=== PATIENT | female | born 1975 | race Two or more races ===

== ENCOUNTER 2024-05-15 09:56 | Outpatient (AMB) | payer MEDICAID, SELFPAY ==
[2024-05-15 10:53] VITALS: BP 134/86; PULSE 68; RESP 19; TEMP 36.7; O2SAT 99; BMI 26.9
--- NOTE | 2024-05-15 10:53 | GSCOFFNT_ITS ---
V[facility]s - [facility] 05/15/24 10:53 Height 1.7 m Height Method Stated Weight 78.188 kg Weight Measurement Method Standing Scale BMI 26.9 BP 134/86 H Blood Pressure Source Automatic Cuff Blood Pressure Location Left Upper Arm Position Sitting Respiration 19 Pulse 68 Pulse Source Monitor Temp 98.0 F Temp Source Temporal Artery Scan Pulse Oximetry (%) 99 Oxygen Delivery Method Room Air Med/Allergies Allergies & Medications Allergies No Known Allergies Allergy (Verified 05/15/24 10:55) Medication Reconciliation No Known Home Medications 05/15/24 [History Confirmed 05/15/24] MA Intake Visit Data Collection New Patient or Established: Established Patient (seen at [facility] within 3 years) Seen by Clinical Staff ONLY (RN/MA): No Reason for Visit:: REFERRAL GALLSTONES Pain Present Currently: No Color Print Inspector Required: No PCP or OBGYN visit in last 3 months: Yes Hx Now: No Do You Feel Safe at Home: Yes Authorities Contacted: N/A Smoking Status Smoking Status: Never smoker Immunization / Flu Flu Vaccine in the Last 12 Months: No Flu Vaccine Exclusion Criteria: Already Received Past Medical History Social History SMOKING STATUS: Smoking status: Never smoker HPI HPI Narrative Spoke to pt with in-person language interpreter 48F referred for symptomatic cholelithiasis. Pt reports since Mar she has had episodes of RUQ pain, especially after eating greasy or spicy foods. She states episodes are associated with nausea and diarrhea. Pt states she went to the ER in [place] and was advised she has gallstones PMH: None PSHx: None Meds: None Allergies: NKDA Family hx: No known malignancies ROS Review of Systems Systems Reviewed: All systems reviewed, normal except as documented Objective/Exam General General Appearance: alert, cooperative and well groomed Resp Respiratory exam: Absent respiratory distress Abdominal Abdominal exam: Present soft; Absent distention or tenderness Assessment & Plan Diagnosis / Problem List (1) Symptomatic cholelithiasis: Status: Acute Assessment & Plan: 48F with symptomatic cholelithiasis. I explained benefits/risks of surgery including need for conversion to open, bleeding, infection, injury to nearby structures and biliary leak requiring further procedures or surgery which could require transfer to another facility. 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
== END 2024-05-15 11:20 | disposition home or self-care (01) ==
LOC: HODSRG 09:56
PROVIDERS: PCP Family Medicine; Referring Provider Family Medicine; Supervising Provider Surgery; Visit Provider Surgery
DX: K80.20 Calculus of gallbladder without cholecystitis without obstruction (principal)
CPT/HCPCS: 99203; G0463

== ENCOUNTER 2024-06-23 09:04 | Outpatient (AMB) | payer MEDICAID, SELFPAY ==
[2024-06-23 09:13] VITALS: BP 124/84; PULSE 82; RESP 18; TEMP 36.3; O2SAT 98; BMI 27.3
--- NOTE | 2024-06-23 09:13 | PD.GSCLVISIT ---
Vital Signs - [facility] 06/23/24 09:13 Height 1.7 m Height Method Stated Weight 78.925 kg Weight Measurement Method Standing Scale BMI 27.3 BP 124/84 Blood Pressure Source Automatic Cuff Blood Pressure Location Left Upper Arm Position Sitting Respiration 18 Pulse 82 Pulse Source Monitor Temp 97.3 F Temp Source Temporal Artery Scan Pulse Oximetry (%) 98 Oxygen Delivery Method Room Air Med/Allergies Allergies & Medications Allergies No Known Allergies Allergy (Verified 06/23/24 09:27) Medication Reconciliation No Known Home Medications 05/15/24 [History Confirmed 06/23/24] MA Intake Visit Data Collection New Patient or Established: Established Patient (seen at [facility] within 3 years) Seen by Clinical Staff ONLY (RN/MA): No Reason for Visit:: GALLSTONES F/U Pain Present Currently: No Business Excellence Leader Required: Yes PCP or OBGYN visit in last 3 months: Yes Hx Now: No Do You Feel Safe at Home: Yes Authorities Contacted: N/A Smoking Status Smoking Status: Never smoker Immunization / Flu Flu Vaccine in the Last 12 Months: No Flu Vaccine Exclusion Criteria: No Exclusion Criteria Past Medical History Social History SMOKING STATUS: Smoking status: Never smoker HPI HPI Narrative Spoke to pt with in-person knotter 48F here for follow up of symptomatic cholelithiasis. Pt states she has not had any episodes of pain since last visit, but notices she feels bloated and inflamed if she eats spicy or greasy foods ROS Review of Systems Systems Reviewed: All systems reviewed, normal except as documented Objective/Exam General General Appearance: alert, cooperative and well groomed Resp Respiratory exam: Absent respiratory distress Assessment & Plan Diagnosis / Problem List (1) Symptomatic cholelithiasis: Status: Acute Assessment & Plan: 48F referred for symptomatic cholelithiasis. I explained that surgery is not mandatory but given a history of symptomatic cholelithiasis there is a 30% chance she will experience a recurrence of symptoms. All questions were answered, we discussed benefits/risks and pt agrees to proceed Plan: Follow up outpt US results Lap ivana, possible open Wed 07/09 Office Procedures GNS Level of Care Nursing/Assessment Patient Status: Established Patient Nursing Assessment/Reassesment: Medication Reconciliation, Update PMH in EMR and Vital Signs Coordination of Care: Complex Care and Chronic Disease 1-5, Consent,records obtained, informed consent, Education Simp Pt/Fam and Staff clarify orders Established Patient Charge Established Patient Point Assignment: 85 Established Patient Point Charge: EP Level 3 (80-115) Patient Portal Questionaires Social History Tobacco History Smoking Status: Never smoker Domestic Abuse History Do You Feel Safe at Home: Yes Review of Systems Report any current symptoms Only answer those that you have currently: Past Medical History Past Medical History Have you ever been diagnosed with any of the following:
== END 2024-06-23 09:28 | disposition home or self-care (01) ==
LOC: HODSRG 09:04
PROVIDERS: PCP Family Medicine; Referring Provider Family Medicine; Supervising Provider Surgery; Visit Provider Surgery
DX: K80.20 Calculus of gallbladder without cholecystitis without obstruction (principal)
CPT/HCPCS: 99213; G0463

== ENCOUNTER 2024-07-09 05:30 | Day surgery (SDC) | payer MEDICAID, SELFPAY ==
[2024-07-08 08:10] VITALS: BMI 28.4
[2024-07-08 09:54] LABS: Basophils % (Auto) 0 % (0-2.5); Eosinophils # (Auto) 0.1 Thou/mm3 (0.0-0.5); Eosinophils % (Auto) 2 % (0-10); Hematocrit 37.3 % (36.0-46.0); Hemoglobin 12.7 g/dL (12.0-16.0); Immature Granulocytes % (Auto) 0 % (0-0); Immature Granulocytes Auto 0.02 Thou/mm3 (0.00-0.00); Lymphocytes # (Auto) 1.9 Thou/mm3 (1.0-4.8); Lymphocytes % (Auto) 35 % (10-50); Mean Corpuscular Hemoglobin 33.9 pg (25.0-35.0); Mean Corpuscular Volume 100 fL (80-100); Monocytes # (Auto) 0.4 Thou/mm3 (0.0-0.8); Monocytes % (Auto) 7 % (0-12); Neutrophils % (Auto) 56 % (37-80); Nucleated Red Blood Cell % 0 /100 WBC (0); Platelet Count 177 Thou/mm3 (140-440); RDW Standard Deviation 44.6 fL (36.4-46.3); Red Blood Count 3.75 Miln/mm3 (4.00-5.20); White Blood Count 5.4 Thou/mm3 (3.6-11.0)
[2024-07-08 10:02] LABS: Anion Gap 7 (7-16); BUN/Creatinine Ratio 20 Ratio (12-20); Blood Urea Nitrogen 14 mg/dL (9-23); Calcium 9.4 mg/dL (8.3-10.6); Chloride 105 mMol/L (98-107); Creatinine (Component) 0.7 mg/dL (0.6-1.3); Glucose 102 mg/dL (74-106); Osmolality,Calculated 279 (275-295); Potassium 4.1 mMol/L (3.4-5.1); Sodium 140 mMol/L (136-145); eGFR > 60 See Note
[2024-07-08 10:11] LABS: Partial Thromboplastin Time 27.1 Seconds (22.0-36.0); Prothrombin Time 11.2 Seconds (9.0-12.2)
[2024-07-08 10:29] LABS: HCG,Qualitative Serum Negative
[2024-07-09] VITALS (11 sets, daily range): BP systolic 119–139; BP diastolic 67–87; PULSE 57–74; RESP 12–20; TEMP 36.4–36.6; O2SAT 95–100; BMI 28.0
--- NOTE | 2024-07-09 08:42 | PD.SUROPNT ---
Date of Procedure 07/09/24 Pre Op Diagnosis Symptomatic cholelithiasis Post Op Diagnosis Same Procedure Laparoscopic cholecystectomy Findings Gallbladder with many stones Procedure Description After discussion of risks and benefits, patient was brought to the operating room, SCDs were placed and general anesthesia was induced. She received preoperative antibiotics and was prepped and draped in usual sterile fashion. After timeout a supraumbilical incision was made and the skin was elevated while a Veress needle was placed through the incision. Proper positioning was confirmed with the drop test and the abdomen was insufflated to 15 mmHg. At that point the Veress needle was exchanged for a 5 mm camera using a Visiport technique. There were no signs of injury from the point of entry. 3 additional ports were placed under direct vision, one 12 mm at the epigastrium, one 5 mm right subcostal and one 5 mm right anterior axillary line. Patient was placed in reverse Trendelenburg. The fundus of the gallbladder was grasped retracted cephalad and the infundibulum was grasped and retracted laterally. The critical view of safety was achieved and the cystic duct and cystic artery were clipped and transected in the usual fashion. The gallbladder was removed from the gallbladder bed using electrocautery and the specimen was removed in an Endo Catch bag via the epigastric port, which had to be widened to accommodate the large gallbladder containing numerous stones. The gallbladder bed was inspected and there was minimal oozing which was controlled with electrocautery. The epigastric fascia was closed with two 0 Vicryl sutures using a Sharif-Quin. Pneumoperitoneum was released and ports were removed under direct vision. Incisions were irrigated and infiltrated with half percent Marcaine for a total of 20 cc. Incisions were closed with 4 Monocryl and reinforced with Dermabond. Patient was extubated and brought to PACU in stable condition Pathology / specimen Other (Gallbladder) Estimated Blood Loss 25 Surgeon Briana Fitch MD Surgical Staff Operation Date: 07/09/24 07:30 Case Staff SUPPLIER QUALITY MANAGER: Jie Leach RNelectrician powerhouse: Jasmyne Salvador
--- NOTE | 2024-07-09 08:45 | ESDS_ITS ---
Planned Discharge Date 07/09/24 DS: Providers Provider Primary care physician: ALCON Geller Attending Provider on Admission: Briana Fitch MD Attending Provider on DC: Briana Fitch MD Discharging Provider: Briana Fitch MD Diagnosis Discharge Diagnosis (1) Symptomatic cholelithiasis: Status: Acute Problem List Completed Was Problem List Reviewed/Reconciled?: Yes Hospital Course Patient presented for scheduled laparoscopic cholecystectomy 07/09 for symptomatic cholelithiasis. Procedure proceeded without complication and patient is appropriate for discharge home Exam Vital Signs Temp Pulse Resp BP Pulse Ox 97.6 F 64 18 128/67 96 07/09/24 06:11 07/09/24 06:11 07/09/24 06:11 07/09/24 06:11 07/09/24 06:11 Constitutional Constitutional: no acute distress Routine Respiratory Exam Respiratory: Present no resp distress Routine Abdominal Exam Abdominal: Present soft Discharge Plan Plan Patient Disposition: HOME (Self Care) Prescriptions/Referrals Prescriptions/Med Rec: New oxycodone-acetaminophen [Percocet] 5-325 mg tablet 1 tab PO Q6H MDD 6 tabs PRN (Reason: pain) Qty: 10 0RF Rx Instructions: Take 1-2 tabs every 6 hours as needed for pain Referrals: Harshad Garcia FNP [Primary Care Provider] - Briana Fitch MD [Physician] - (You will receive a phone call to confirm a follow-up appointment with me in 2 weeks) Patient/Caregiver Discharge Instructions Other Discharge Activity Instructions:: You may resume showering in 2 days, on 07/11 Avoid bathing or swimming for 2 weeks Avoid lifting objects greater than 10 pounds for 6 weeks Your stitches have skin glue on them which will fall off on its own and does not need to be replaced Your stitches will not need to be removed During the surgery we inflate your abdomen with air in order to see the structures. We attempt to remove it all at the end but some can remain and cause pain with deep breaths and/or pain that is referred to the shoulder. This will improve with time. Walking can help the air to absorb faster If you develop worsening pain, nausea/vomiting, fever or jaundice please seek care in ER Education Materials: Preventing Surgical Site Infections Print Language: Greenlandic Stand Alone Forms: Rachel Award Info., Patient Portal Info Letter Discharge Order Discharge Orders: Discharge (Routine); Ordered 07/09/24 Ordered By: Briana Fitch Results Results: Laboratory Laboratory results: results reviewed Procedures Procedure Date 07/09/24 Procedures Laparoscopic cholecystectomy
--- NOTE | 2024-07-09 08:56 | SUR.PHASEI ---
pt received from OR in recovery bay 5. pt obtunded, breathing unlabored on 8l oxymask, oral airway in place. v/s stable. pt dressing to abd dermabond x4 cdi. report received from Jeannine RAYMOND and Jie CRONIN.
--- NOTE | 2024-07-09 09:46 | SUR.PHASEII ---
pt able to tolerate oral fluids without difficulty swallowing or nausea/vomiting.
--- NOTE | 2024-07-09 11:00 | SUR.PHASEII ---
pt awake and alert, breathing unlabored on room air. v/s stable. pt dressing to abd dermabond x4 cdi. pt able to ambulate to wheelchair with steady gait. d/c instructions given with Jeramy in room using cotton header Yasmin Lin28, all questions answered. pt d/c via wheelchair with all belongings.
== END 2024-07-09 11:00 | disposition home or self-care (01) ==
PROVIDERS: Anesthesiology; PCP Family Medicine; Referring Provider Surgery; Visit Provider Surgery
PROC: 0FT44ZZ Resection of Gallbladder, Percutaneous Endoscopic Approach (ICD-10-PCS; CPT 47562; principal; 2024-07-09 07:30)
DX: K80.10 Calculus of gallbladder with chronic cholecystitis without obstruction (principal)
CPT/HCPCS: 47562; 36415; 80048; 81025; 84703; 85025; 85610; 85730; A4217; A4649; J0131; J0690; J1100; J1885; J2250; J2405; J2704; J3010; J3490

== ENCOUNTER 2024-07-23 13:31 | Outpatient (AMB) | payer MEDICAID, SELFPAY ==
[2024-07-23 13:41] VITALS: BP 119/84; PULSE 84; RESP 18; TEMP 36.4; O2SAT 98; BMI 28.2
--- NOTE | 2024-07-23 13:41 | PD.GSCLVISIT ---
Vital Signs - [facility] 07/23/24 13:41 Height 1.68 m Height Method Stated Weight 79.577 kg Weight Measurement Method Standing Scale BMI 28.2 BP 119/84 Blood Pressure Source Automatic Cuff Blood Pressure Location Left Upper Arm Position Sitting Respiration 18 Pulse 84 Pulse Source Monitor Temp 97.5 F Temp Source Temporal Artery Scan Pulse Oximetry (%) 98 Oxygen Delivery Method Room Air Med/Allergies Allergies & Medications Allergies No Known Allergies Allergy (Verified 07/23/24 13:43) Medication Reconciliation oxycodone-acetaminophen 5 mg-325 mg tablet (Percocet) 1 tab PO Q6H PRN pain #10 tabs 07/09/24 [Rx Confirmed 07/23/24] MA Intake Visit Data Collection New Patient or Established: Established Patient (seen at [facility] within 3 years) Seen by Clinical Staff ONLY (RN/MA): No Reason for Visit:: LAB IVANA F/U Pain Present Currently: No Campus President Required: Yes PCP or OBGYN visit in last 3 months: Yes Hx Now: No Do You Feel Safe at Home: Yes Authorities Contacted: N/A Smoking Status Smoking Status: Never smoker Immunization / Flu Flu Vaccine in the Last 12 Months: Yes Flu Vaccine Exclusion Criteria: Already Received Past Medical History Past Medical History NEUROLOGIC: Positive Neurological Disorders and Migraine; Negative Seizures CARDIAC: Negative Cardiac Disorders or Congestive Heart Failure RESPIRATORY: Negative Chronic Obstructive Pulmonary Disease (COPD) GASTROINTESTINAL: Positive Gastrointestinal Disorders, Gall Bladder Disease and Obesity; Negative Hepatitis GENITOURINARY: Negative Genitourinary Disorders or Renal Disease REPRODUCTIVE: Positive Previous Pregnancies ENDOCRINE: Negative Endocrine Disorders, Diabetes Mellitus Type 1 or Diabetes Mellitus Type 2 HEMATOLOGIC: Negative Blood Disorders OTHER HISTORY: Positive Chicken Pox; Negative Hospitalization, Autoimmune Disease, Shingles, Blood Transfusions, Blood Transfusion Reaction, Anesthesia Reactions or Cancer Family History FAMILY HISTORY: Positive Family Surgery; Negative Family Psychiatric Problems, Family Respiratory Disorders, Family Cardiac Disorders, Family Gastrointestinal Problems, Family Cancer or Family Anesthesia Reaction Social History SMOKING STATUS: Smoking status: Never smoker ALCOHOL: Alcohol Intake: Never HOUSING: Housing: House HPI HPI Narrative 48F who presented for laparoscopic cholecystectomy 07/09 here for planned follow up. Pt reports feeling well overall with no pain, no nausea, no fevers or diarrhea; she is eating well and having regular BMs ROS Review of Systems Systems Reviewed: All systems reviewed, normal except as documented Objective/Exam General General Appearance: alert, cooperative and well groomed Resp Respiratory exam: Absent respiratory distress Abdominal Abdominal exam: Present soft and incision (c/d/i, no erythema, no fluctuance or tenderness); Absent distention or tenderness Results Pathology reviewed Assessment & Plan Diagnosis / Problem List (1) Symptomatic cholelithiasis: Status: Acute Assessment & Plan: 48F s/p lap ivana 07/09 recovering well Plan: Avoid strenuous activity for 6 weeks postop F/u as needed Office Procedures GNS Level of Care Nursing/Assessment Patient Status: Established Patient Nursing Assessment/Reassesment: Medication Reconciliation, Update PMH in EMR and Vital Signs Coordination of Care: Complex Care and Chronic Disease 1-5, Consent,records obtained, informed consent, Education Simp Pt/Fam, Results/Orders obtained and Staff clarify orders Special Needs: Language special needs Established Patient Charge Established Patient Point Assignment: 90 Established Patient Point Charge: Level 3 (80-115) Patient Portal Questionaires Social History Living Situation History Housing: House Tobacco History Smoking Status: Never smoker Alcohol History Alcohol Intake: Never Domestic Abuse History Do You Feel Safe at Home: Yes Review of Systems Report any current symptoms Only answer those that you have currently: Past Medical History Past Medical History Have you ever been diagnosed with any of the following: Neurological Problems Seizures: No Migraine: Yes Cardiology Problems Congestive Heart Failure: No Respiratory Problems Chronic Obstructive Pulmonary Disease (COPD): No Stomache/Intestinal Problems Hepatitis: No Gall Bladder Disease: Yes Obesity: Yes Genital/Urinary Problems Renal Disease: No Reproductive Problems Previous Pregnancies: Yes Endocrine Problems Diabetes Mellitus Type 1: No Diabetes Mellitus Type 2: No Other Problems Hospitalization: No Autoimmune Disease: No Shingles: No Blood Transfusions: No Blood Transfusion Reaction: No Anesthesia Reactions: No Chicken Pox: Yes Cancer: No
== END 2024-07-23 14:07 | disposition home or self-care (01) ==
LOC: HODSRG 13:31
PROVIDERS: PCP Family Medicine; Referring Provider Family Medicine; Supervising Provider Surgery; Visit Provider Surgery
DX: Z48.815 Encounter for surgical aftercare following surgery on the digestive system (principal)
CPT/HCPCS: 99213; G0463